=== PATIENT | female | born 1940 | race African-American/Black ===

== ENCOUNTER 2021-05-02 10:25 | Emergency (ER) | payer MEDICARE, OTHER ==
[2021-05-02 10:57] LABS: #Eosinphils 0.3 10x3/uL (0.0-0.5); #Monocytes 0.7 10x3/uL (0.0-1.1); %Basophils 0.5 % (0.0-2.0); %Eosinophils 4.7 % (0.0-6.0); %Lymphocytes 47.3 % (18.0-47.0); %Monocytes 11.9 % (0.0-10.0); %Neutrophils 35.3 % (40.0-75.0); Hemoglobin 14.7 g/dL (12.0-15.5); Mean Corpuscular Hemoglobin 26.6 pg (27.0-33.0); Mean Corpuscular Volume 80.6 fl (81.6-98.3); Mean Platelet Volume 9.1 fl (7.4-10.4); Platelet Count 249 10x3/uL (150-450); RBC Distribution Width 16.6 % (11.5-14.5); Red Blood Cell (RBC) Count 5.52 10x6/uL (3.90-5.03); White Blood Cell (WBC) Count 5.8 10x3/uL (3.5-10.5)
[2021-05-02 11:16] LABS: ALT (SGPT) 12 U/L (8-55); AST (SGOT) 19 U/L (5-34); Alkaline Phosphatase 61 U/L (40-110); Anion Gap 12 mmol/L (10-20); BUN (Urea Nitrogen) 13 mg/dL (9.8-20.1); Bilirubin, Total 0.7 mg/dL (0.2-1.2); Calc. Creatinine Clearance 0 mL/min (70-130); Carbon Dioxide 29 mmol/L (23-31); Chloride 105 mmol/L (98-107); Globulin 3.5 g/dL (2.4-3.5); Glucose 113 mg/dL (83-110); Potassium 3.8 mmol/L (3.5-5.1); Protein, Total 7.5 g/dL (5.8-8.1); Sodium 142 mmol/L (136-145)
[2021-05-02] MEDS ORDERED: Benzonatate 100 MG CAP ONE (11:44)
[2021-05-02] MEDS ORDERED: Ibuprofen 200 MG TAB ONE (11:45)
== END 2021-05-02 12:20 | disposition home or self-care (01) ==
LOC: CSHERS 10:25
DX: R07.89 Other chest pain (principal); B34.9 Viral infection, unspecified; E03.9 Hypothyroidism, unspecified; E78.5 Hyperlipidemia, unspecified; I10 Essential (primary) hypertension; Z79.899 Other long term (current) drug therapy
CPT/HCPCS: 71045; 80053; 83605; 83880; 84484; 85025; 93005; 94760

== ENCOUNTER 2021-10-25 20:53 | Emergency (ER) | payer MEDICARE, OTHER ==
[2021-10-25] MEDS ORDERED: Ketorolac Tromethamine 30 MG/ML VIAL ONE (21:54)
[2021-10-25] MEDS ORDERED: Acetaminophen 500 MG TAB ONE (21:54)
== END 2021-10-25 22:05 | disposition home or self-care (01) ==
LOC: CSHERS 20:53
DX: M25.552 Pain in left hip (principal)
CPT/HCPCS: 96372; J1885

== ENCOUNTER 2021-11-16 12:27 | Emergency (ER) | payer MEDICARE, OTHER ==
[2021-11-16 12:54] LABS: #Eosinphils 0.2 10x3/uL (0.0-0.5); #Neutrophils 2.7 10x3/uL (1.5-8.4); %Basophils 0.4 % (0.0-2.0); %Eosinophils 3.1 % (0.0-6.0); %Lymphocytes 48.8 % (18.0-47.0); %Monocytes 12.8 % (0.0-10.0); %Neutrophils 34.6 % (40.0-75.0); Hemoglobin 15.9 g/dL (12.0-15.5); Mean Corpuscular Hemoglobin 26.8 pg (27.0-33.0); Mean Corpuscular Volume 81.3 fl (81.6-98.3); Mean Platelet Volume 9.3 fl (7.4-10.4); Platelet Count 264 10x3/uL (150-450); RBC Distribution Width 15.9 % (11.5-14.5); Red Blood Cell (RBC) Count 5.93 10x6/uL (3.90-5.03); White Blood Cell (WBC) Count 7.8 10x3/uL (3.5-10.5)
[2021-11-16 13:09] LABS: ALT (SGPT) 15 U/L (8-55); Albumin 4.3 g/dL (3.4-4.8); Alkaline Phosphatase 68 U/L (40-110); Anion Gap 18 mmol/L (10-20); BUN (Urea Nitrogen) 17 mg/dL (9.8-20.1); Bilirubin, Total 0.6 mg/dL (0.2-1.2); Calc. Creatinine Clearance 0 mL/min (70-130); Calcium 10.4 mg/dL (7.8-10.44); Carbon Dioxide 26 mmol/L (23-31); Chloride 102 mmol/L (98-107); Glucose 101 mg/dL (83-110); Lipase 43 U/L (8-78); Potassium 4.8 mmol/L (3.5-5.1); Protein, Total 8.3 g/dL (5.8-8.1); Sodium 141 mmol/L (136-145)
[2021-11-16 13:10] LABS: AST (SGOT) 26 U/L (5-34)
[2021-11-16] MEDS ORDERED: Iopamidol 370 76% 100 ML VIAL ONE (14:44)
== END 2021-11-16 14:40 | disposition home or self-care (01) ==
LOC: CSHERS 12:27
DX: R05.3 Chronic cough (principal); R07.89 Other chest pain; I10 Essential (primary) hypertension
CPT/HCPCS: 71045; 71275; 80053; 83690; 84484; 85025; 93005; 94760; Q9967

== ENCOUNTER 2022-04-20 11:57 | Emergency (ER) | payer MEDICARE, OTHER ==
[2022-04-20] MEDS ORDERED: Ketorolac Tromethamine 30 MG/ML VIAL ONE (14:09)
[2022-04-20 15:12] LABS: SARS-CoV-2 NAA Rapid Test DETECTED (NotDetected)
== END 2022-04-20 15:04 | disposition home or self-care (01) ==
LOC: CSHERS 11:57
DX: U07.1 COVID-19 (principal); J11.1 Influenza due to unidentified influenza virus with other respiratory manifestations; I10 Essential (primary) hypertension
CPT/HCPCS: 0240U; 71045; 93005; 96374; J1885

== ENCOUNTER 2023-03-07 21:17 | Emergency (ER) | payer MEDICARE, OTHER ==
[2023-03-07 23:22] LABS: #Eosinphils 0.2 10x3/uL (0.0-0.5); #Monocytes 0.7 10x3/uL (0.0-1.1); #Neutrophils 3.7 10x3/uL (1.5-8.4); %Basophils 0.4 % (0.0-2.0); %Eosinophils 1.8 % (0.0-6.0); %Monocytes 8.2 % (0.0-10.0); %Neutrophils 44.4 % (40.0-75.0); Hematocrit 43.5 % (34.9-44.5); Hemoglobin 14.2 g/dL (12.0-15.5); Mean Corpuscular HGB CONC 32.6 g/dL (32.0-36.0); Mean Corpuscular Hemoglobin 26.1 pg (27.0-33.0); Mean Corpuscular Volume 79.8 fl (81.6-98.3); Platelet Count 237 10x3/uL (150-450); Red Blood Cell (RBC) Count 5.45 10x6/uL (3.90-5.03); White Blood Cell (WBC) Count 8.3 10x3/uL (3.5-10.5)
[2023-03-07 23:32] LABS: ALT (SGPT) 15 U/L (8-55); AST (SGOT) 18 U/L (5-34); Alkaline Phosphatase 67 U/L (40-110); Anion Gap 16 mmol/L (10-20); BUN (Urea Nitrogen) 19 mg/dL (9.8-20.1); Bilirubin, Total 0.6 mg/dL (0.2-1.2); Calc. Creatinine Clearance 0 mL/min (70-130); Calcium 9.1 mg/dL (7.8-10.44); Carbon Dioxide 27 mmol/L (23-31); Chloride 104 mmol/L (98-107); Estimated GFR 53; Globulin 3.1 g/dL (2.4-3.5); Glucose 104 mg/dL (83-110); Magnesium 1.9 mg/dL (1.6-2.6); Potassium 3.7 mmol/L (3.5-5.1); Protein, Total 7.1 g/dL (5.8-8.1); Sodium 143 mmol/L (136-145)
[2023-03-07 23:39] LABS: Troponin I Less than 0.010 ng/mL (< 0.028)
== END 2023-03-08 01:33 | disposition home or self-care (01) ==
LOC: CSHERS 21:17
DX: M25.511 Pain in right shoulder (principal); I10 Essential (primary) hypertension
CPT/HCPCS: 36415; 70450; 71045; 72125; 72170; 80053; 83735; 83880; 84484; 85025; 93005

== ENCOUNTER 2023-12-16 13:26 | Emergency (ER) | payer MEDICARE, OTHER ==
[2023-12-16 14:07] LABS: #Basophils 0.02 10x3/uL (0.0-0.2); #Eosinphils 0.15 10x3/uL (0.0-0.5); #Neutrophils 4.38 10x3/uL (1.5-8.4); %Basophils 0.3 % (0.0-2.0); %Eosinophils 2.1 % (0.0-6.0); %Lymphocytes 26.3 % (18.0-47.0); Hematocrit 43.8 % (34.9-44.5); Hemoglobin 15.2 g/dL (12.0-15.5); Mean Corpuscular HGB CONC 34.7 g/dL (32.0-36.0); Mean Corpuscular Hemoglobin 26.9 pg (27.0-33.0); Mean Corpuscular Volume 77.4 fL (81.6-98.3); Mean Platelet Volume 9.3 fL (7.4-10.4); Platelet Count 203 10x3/uL (150-450); RBC Distribution Width 18.6 % (11.5-14.5); Red Blood Cell (RBC) Count 5.66 10x6/uL (3.90-5.03); White Blood Cell (WBC) Count 7.3 10x3/uL (3.5-10.5)
[2023-12-16 14:29] LABS: ALT (SGPT) 12 U/L (8-55); AST (SGOT) 24 U/L (5-34); Albumin 3.7 g/dL (3.4-4.8); Alkaline Phosphatase 64 U/L (40-110); Anion Gap 17 mmol/L (10-20); BUN (Urea Nitrogen) 10 mg/dL (9.8-20.1); Bilirubin, Total 0.7 mg/dL (0.2-1.2); Calc. Creatinine Clearance 0 mL/min (70-130); Calcium 9.7 mg/dL (7.8-10.44); Carbon Dioxide 22 mmol/L (23-31); Chloride 105 mmol/L (98-107); Estimated GFR 63; Glucose 104 mg/dL (83-110); Potassium 3.8 mmol/L (3.5-5.1); Protein, Total 7.7 g/dL (5.8-8.1); Sodium 140 mmol/L (136-145)
[2023-12-16 14:35] LABS: Troponin I Less than 0.010 ng/mL (< 0.028)
[2023-12-16] MEDS ORDERED: Dexamethasone 10 MG/ML VIAL ONE (14:36)
[2023-12-16] MEDS ORDERED: Ibuprofen 200 MG TAB ONE (14:36)
== END 2023-12-16 15:50 | disposition home or self-care (01) ==
LOC: CSHERS 13:26
DX: R07.9 Chest pain, unspecified (principal); R05.9 Cough, unspecified
CPT/HCPCS: 71045; 80053; 83880; 84484; 85025; 93005; 99285; J1100; 36415

== ENCOUNTER 2024-05-31 09:12 | Emergency (ER) | payer MEDICARE, OTHER | END 2024-05-31 10:34 | disposition home or self-care (01) | LOC: CSHERS 09:12 | DX: J06.9 Acute upper respiratory infection, unspecified (principal); R05.9 Cough, unspecified; I10 Essential (primary) hypertension; E11.9 Type 2 diabetes mellitus without complications | CPT/HCPCS: 71046; 87428 ==

== ENCOUNTER 2025-03-27 09:25 | Outpatient (CLI) | payer MEDICARE, OTHER | END 2025-03-27 09:26 | disposition home or self-care (01) | LOC: CSHULT 09:25 | PROVIDERS: ATTEND Physical Medicine & Rehabilitation | DX: E04.9 Nontoxic goiter, unspecified (principal); E04.1 Nontoxic single thyroid nodule | CPT/HCPCS: 36416 ==

== ENCOUNTER 2025-04-29 12:43 | Inpatient (IN) | payer MEDICARE, OTHER ==
[2025-04-29 14:50] LABS: #Basophils Less than 0.03 10x3/uL (0.0-0.2); #Eosinophils 0.13 10x3/uL (0.0-0.5); #Monocytes 0.56 10x3/uL (0.0-1.1); #Neutrophils 2.91 10x3/uL (1.5-8.4); %Basophils 0.2 % (0.0-2.0); %Eosinophils 2.2 % (0.0-6.0); %Lymphocytes 39.4 % (18.0-47.0); %Monocytes 9.3 % (0.0-10.0); %Neutrophils 48.6 % (40.0-75.0); Hematocrit 42.3 % (34.9-44.5); Hemoglobin 13.9 g/dL (12.0-15.5); Mean Corpuscular Hemoglobin 25.3 pg (27.0-33.0); Mean Corpuscular Volume 77.0 fL (81.6-98.3); Platelet Count 227 10x3/uL (150-450); Red Blood Cell (RBC) Count 5.49 10x6/uL (3.90-5.03); White Blood Cell (WBC) Count 5.99 10x3/uL (3.5-10.5)
[2025-04-29 15:07] LABS: ALT (SGPT) 12 U/L (Less than 34); AST (SGOT) 21 U/L (11-34); Albumin 3.7 g/dL (3.1-4.5); Alkaline Phosphatase 84 U/L (40-110); Anion Gap 17 mmol/L (10-20); BUN (Urea Nitrogen) 12 mg/dL (9.8-20.1); Bilirubin, Total 1.1 mg/dL (0.3-1.2); CK (CPK) 45 U/L (29-168); Calc. Creatinine Clearance 0 mL/min (70-130); Calcium 9.8 mg/dL (7.8-10.44); Carbon Dioxide 25 mmol/L (23-31); Chloride 105 mmol/L (98-107); Globulin 3.9 g/dL (2.4-3.5); Glucose 106 mg/dL (83-110); Magnesium 1.9 mg/dL (1.6-2.6); Potassium 3.5 mmol/L (3.5-5.1); Sodium 143 mmol/L (136-145)
[2025-04-29 15:09] LABS: Troponin I 0.015 ng/mL (< 0.028)
[2025-04-29 16:30] LABS: Glucose, Urine (Dipstick) Normal (Negative); Leukocyte 25 (Negative); Protein, Urine (Dipstick) 30 mg/dl (Neg-Trace); Specific Gravity, Urine 1.020 (1.005-1.030)
[2025-04-29 16:37] LABS: Cocaine Metabolite Screen Negative (Negative); THC/Cannabinoid Screen Negative (Negative); Tricyclic Screen Negative (Negative)
[2025-04-29 17:13] LABS: Bacteria/HPF Rare-Few HPF (None Seen); CAUTI Indications for Culture Alt mental st,lethar; Mucous/LPF 1+ LPF (<2+); RBC/HPF 0-3 HPF (0-3)
[2025-04-29 17:14] LABS: Urine Culture Reflex No No
[2025-04-29] MEDS ORDERED: Ondansetron PF 4 MG/2 ML Vial IVP PRN (19:24)
[2025-04-29] MEDS ORDERED: Acetaminophen 325 MG TAB PO PRN (19:24)
[2025-04-29] MEDS ORDERED: Melatonin 3 MG TAB PO PRN (19:24)
[2025-04-29] MEDS ORDERED: Senokot S 8.6-50 MG TAB PO PRN (19:24)
[2025-04-29 20:04] LABS: Troponin I 0.029 ng/mL (< 0.028)
[2025-04-29 22:26] VITALS: BMI 28.5
[2025-04-29 22:45] LABS: Troponin I 0.025 ng/mL (< 0.028)
[2025-04-30 04:07] LABS: #Basophils Less than 0.03 10x3/uL (0.0-0.2); #Eosinophils 0.17 10x3/uL (0.0-0.5); #Monocytes 0.77 10x3/uL (0.0-1.1); #Neutrophils 1.66 10x3/uL (1.5-8.4); %Basophils 0.4 % (0.0-2.0); %Eosinophils 3.0 % (0.0-6.0); %Lymphocytes 53.2 % (18.0-47.0); %Monocytes 13.7 % (0.0-10.0); %Neutrophils 29.5 % (40.0-75.0); Hematocrit 36.8 % (34.9-44.5); Hemoglobin 12.5 g/dL (12.0-15.5); Mean Corpuscular Hemoglobin 26.0 pg (27.0-33.0); Mean Corpuscular Volume 76.7 fL (81.6-98.3); Platelet Count 211 10x3/uL (150-450); Red Blood Cell (RBC) Count 4.80 10x6/uL (3.90-5.03); White Blood Cell (WBC) Count 5.62 10x3/uL (3.5-10.5)
[2025-04-30 04:19] LABS: Anion Gap 13 mmol/L (10-20); BUN (Urea Nitrogen) 9 mg/dL (9.8-20.1); Calc. Creatinine Clearance 88 mL/min (70-130); Calcium 9.1 mg/dL (7.8-10.44); Carbon Dioxide 25 mmol/L (23-31); Chloride 108 mmol/L (98-107); Glucose 103 mg/dL (83-110); Potassium 3.1 mmol/L (3.5-5.1); Sodium 143 mmol/L (136-145)
[2025-04-30] MEDS: Enoxaparin 40 MG (0.4 mL) SYRINGE SC SCH (08:56)
[2025-04-30] MEDS: NS 0.9% w/ 40 MEQ KCL 1,000 ML IV SCH (08:56)
[2025-04-30 15:53] VITALS: BP 140/66; TEMP 98.2
== END 2025-04-30 16:55 | disposition home or self-care (01) | DRG 312 ==
LOC: CSHERS 12:43 → CSHERHOLD 17:49 → OBSVTOIN 17:50 → CSHTELE 21:26
PROVIDERS: ADMIT Internal Medicine; ATTEND Physician Assistant
DX: R55 Syncope and collapse (principal); E11.9 Type 2 diabetes mellitus without complications; I10 Essential (primary) hypertension; E78.5 Hyperlipidemia, unspecified; M54.9 Dorsalgia, unspecified; Z96.643 Presence of artificial hip joint, bilateral; Z96.653 Presence of artificial knee joint, bilateral; Z98.890 Other specified postprocedural states; Z90.49 Acquired absence of other specified parts of digestive tract; Z90.710 Acquired absence of both cervix and uterus; Z86.73 Personal history of transient ischemic attack (TIA), and cerebral infarction without residual deficits
CPT/HCPCS: 36415; 36416; 70450; 71045; 80048; 80053; 80306; 81001; 82550; 83735; 83880; 84484; 85025; 93005; 93306; J1650; J3480